=== PATIENT | male | born 1990 | race Caucasian/White ===

== ENCOUNTER 2023-05-17 06:58 | Emergency (ER) | payer SELFPAY ==
[~2023-05-17] VITALS: Ht 170.2 cm; Wt 68.2 kg
[2023-05-17] MEDS ORDERED: ondansetron 4mg rapidly disintigrating tab PO STA (07:18)
[2023-05-17 08:45] VITALS: BP 127/86; PULSE 97; RESP 16; TEMP 97.5; O2SAT 100
== END 2023-05-17 08:49 | disposition home or self-care (01) ==
LOC: ER 06:59
DX: T40.411A Poisoning by fentanyl or fentanyl analogs, accidental (unintentional), initial encounter (principal); Z88.0 Allergy status to penicillin; Y92.89 Other specified places as the place of occurrence of the external cause
CPT/HCPCS: 99285